=== PATIENT | female | born 1995 | race Two or more races ===

== ENCOUNTER 2016-09-20 20:02 | Emergency (ER) | payer MEDICAID ==
[~2016-09-20] VITALS: Ht 152.4 cm; Wt 68.0 kg
[~2016-09-20 20:02] MED LIST: HYDR-2598
[2016-09-20] MEDS ORDERED: SODIUM CHLORIDE 0.9% 1,000 ML IV ONE (22:30)
[2016-09-20] MEDS ORDERED: ONDANSETRON HCL 4 MG/2 ML VIAL IV ONE (22:30)
[2016-09-20] MEDS ORDERED: HYDROmorphone HCL 2 MG/ML VL IV ONE (22:30)
[2016-09-20 22:51] LABS: Basophils # (auto) 0.1 uL; Basophils % (auto) 0.7 % (0.0-2.0); DEFINITIVE VIEW TRANSMISSION; Eosinophils # (auto) 0.8 uL; Eosinophils % (auto) 7.2 % (0.0-7.0); Hematocrit 27.3 % (36.0-46.0); Hemoglobin 8.2 g/dL (12.2-16.2); Lymphocytes # (auto) 2.2 uL; Lymphocytes % (auto) 21.1 % (10.0-50.0); Mean Corpuscular Hemoglobin 17.9 pg (28.0-32.0); Mean Corpuscular Hgb Conc. 29.9 g/dL (32.0-36.0); Mean Corpuscular Volume 59.8 fL (80.0-100.0); Mean Platelet Volume 8.1 fL (7.4-10.4); Monocytes # (auto) 0.6 uL; Monocytes % (auto) 5.6 % (0.0-12.0); Neutrophils # (auto) 6.9 uL; Neutrophils % (auto) 65.4 % (37.0-80.0); Platelet Count (auto) 402 10^3/uL (140-450); White Blood Cell 10.5 10^3/uL (4.4-10.8)
[2016-09-20 23:01] LABS: Red Cell Distribution Width 20.5 % (11.6-16.0)
[2016-09-20 23:29] LABS: Calcium 8.4 mg/dL (8.5-10.1); Potassium 4.1 mmol/L (3.5-5.1)
[2016-09-20 23:32] LABS: Albumin 3.6 g/dL (3.4-5.0)
[2016-09-20 23:35] LABS: Bilirubin, Total 0.2 mg/dL (0.2-1.0); Total Protein 7.8 g/dL (6.4-8.2)
[2016-09-20 23:43] LABS: Platelet Estimate Adequate
[2016-09-20 23:44] LABS: Anisocytosis Moderate; Hypochromia Moderate; Microcytosis Marked
[2016-09-20 23:45] LABS: Hypersegmented Neutrophils Present
[2016-09-20 23:56] VITALS: BP 113/89
== END 2016-09-21 01:18 | disposition home or self-care (01) ==
LOC: ER 20:08
DX: M32.9 Systemic lupus erythematosus, unspecified (principal); J45.909 Unspecified asthma, uncomplicated; R07.9 Chest pain, unspecified; R42 Dizziness and giddiness; Z91.018 Allergy to other foods
CPT/HCPCS: 36415; 80053; 85025; 85049; 93005; 96361; 96374; 96375; 99285; J1170; J2405; J7050

== ENCOUNTER 2019-05-28 19:09 | Observation (INO) | payer MEDICAID ==
[~2019-05-28] VITALS: Ht 152.4 cm; Wt 79.8 kg
[2019-05-28] MEDS ORDERED: PREN-153 OR (19:32)
[2019-05-28] MEDS ORDERED: FERR1TAB36 PO (19:33)
[2019-05-28 20:56] LABS: Urine Bacteria FEW /hpf (None Seen); Urine Blood Negative /uL (Negative); Urine Specific Gravity 1.007 (1.001-1.035); Urine WBC 6 /hpf (0 - 5)
== END 2019-05-28 21:45 | disposition home or self-care (01) | DRG 566 ==
LOC: LDRP 19:09
PROVIDERS: ADMIT Specialist; ATTEND Specialist
DX: O62.9 Abnormality of forces of labor, unspecified (principal); O26.893 Other specified pregnancy related conditions, third trimester; N89.8 Other specified noninflammatory disorders of vagina; Z3A.29 29 weeks gestation of pregnancy
CPT/HCPCS: 59025; 76815; 81001; 81002; 87210; G0378

== ENCOUNTER 2019-06-14 13:50 | Observation (INO) | payer MEDICAID ==
[~2019-06-14 13:50] MED LIST changes: +FERR1TAB36 PO; +PREN-153 OR
== END 2019-06-14 14:20 | disposition home or self-care (01) | DRG 563 ==
LOC: LDRP 13:50
PROVIDERS: ADMIT Obstetrics & Gynecology; ATTEND Obstetrics & Gynecology
DX: O60.03 Preterm labor without delivery, third trimester (principal); O26.893 Other specified pregnancy related conditions, third trimester; R03.0 Elevated blood-pressure reading, without diagnosis of hypertension; R51 Headache; Z3A.32 32 weeks gestation of pregnancy
CPT/HCPCS: 59025; 81002; G0378

== ENCOUNTER 2019-07-10 14:55 | Observation (INO) | payer MEDICAID ==
[~2019-07-10] VITALS: Ht 152.4 cm; Wt 83.5 kg
[~2019-07-10 14:55] MED LIST changes: -HYDR-2598
[2019-07-10] MEDS ORDERED: LACTATED RINGER'S 1,000 ML IV ONE (15:54)
[2019-07-10] MEDS: TERBUTALINE SULFATE 1 MG/ML 1ML VIAL SC SCH ×2 (16:30→16:56)
[2019-07-10 16:48] LABS: Urine WBC None Seen /hpf (0 - 5)
[2019-07-10 16:59] LABS: Urine Bacteria NONE SEEN /hpf (None Seen); Urine Blood Negative /uL (Negative); Urine Specific Gravity 1.004 (1.001-1.035)
== END 2019-07-10 17:45 | disposition home or self-care (01) | DRG 566 ==
LOC: LDRP 14:55
PROVIDERS: ADMIT Specialist; ATTEND Specialist
DX: O62.9 Abnormality of forces of labor, unspecified (principal); Z3A.36 36 weeks gestation of pregnancy
CPT/HCPCS: 59025; 81001; 81002; 96372; G0378; J3105; 96361; 96366

== ENCOUNTER 2019-07-11 15:10 | Observation (INO) | payer MEDICAID | END 2019-07-11 16:25 | disposition home or self-care (01) | DRG 566 | LOC: LDRP 15:10 | PROVIDERS: ADMIT Obstetrics & Gynecology; ATTEND Obstetrics & Gynecology | DX: O99.713 Diseases of the skin and subcutaneous tissue complicating pregnancy, third trimester (principal); L50.9 Urticaria, unspecified; O26.893 Other specified pregnancy related conditions, third trimester; R21 Rash and other nonspecific skin eruption; Z3A.36 36 weeks gestation of pregnancy | CPT/HCPCS: 59025; 81002; G0378 ==

== ENCOUNTER 2019-07-13 11:54 | Observation (INO) | payer MEDICAID ==
[~2019-07-13] VITALS: Ht 11 cm; Wt 0.5 kg
[2019-07-13] MEDS ORDERED: LACTATED RINGER'S 1,000 ML IV SCH ×2 (14:01→16:15)
[2019-07-13] MEDS ORDERED: LACTATED RINGER'S 1,000 ML IV ONE (16:00)
[2019-07-13] MEDS ORDERED: BETAMETHASONE ACET (6MG/ML) 5ML VIAL ONE (16:08)
[2019-07-13 21:16] LABS: Urine Bacteria NONE SEEN /hpf (None Seen); Urine Blood Negative /uL (Negative); Urine Mucus FEW (None Seen); Urine Specific Gravity 1.013 (1.001-1.035); Urine WBC 1 /hpf (0 - 5)
[2019-07-13 21:30] LABS: Alcohol, Urine < 3.0 mg/dL (0-5); Amphetamine Screen, Urine NEGATIVE (NEGATIVE); Barbiturate Scree,Urine NEGATIVE (NEGATIVE); Benzodiazephine Screen, Urine NEGATIVE (NEGATIVE); Cannabinoid Screen, Urine POSITIVE (NEGATIVE); Cocaine Screen, Urine NEGATIVE (NEGATIVE); Opiate Scree,Urine NEGATIVE (NEGATIVE); Phencyclidine Screen, Urine NEGATIVE (NEGATIVE)
[2019-07-14] MEDS ORDERED: BETAMETHASONE ACET (6MG/ML) 5ML VIAL IM ONE (07:30)
[2019-07-14] MEDS ORDERED: BETAMETHASONE ACET (6MG/ML) 5ML VIAL IM SCH (10:00)
[2019-07-14] MEDS ORDERED: LACTATED RINGER'S 1,000 ML IV SCH (14:01)
== END 2019-07-14 10:30 | disposition home or self-care (01) | DRG 566 ==
LOC: LDRP 11:54
PROVIDERS: ADMIT Specialist; ATTEND Specialist
DX: O62.9 Abnormality of forces of labor, unspecified (principal); O34.219 Maternal care for unspecified type scar from previous cesarean delivery; Z3A.36 36 weeks gestation of pregnancy
CPT/HCPCS: 59025; 80307; 81001; 81002; 96372; G0378; J0702; 96361